=== PATIENT | female | born 2000 | race African-American/Black ===

== ENCOUNTER 2020-06-26 06:13 | Emergency (ER) | payer SELFPAY | END 2020-06-26 09:55 | disposition home or self-care (01) | LOC: CSHERS 06:13 | DX: T19.2XXA Foreign body in vulva and vagina, initial encounter (principal) ==

== ENCOUNTER 2024-12-24 07:48 | Outpatient (CLI) | payer OTHER | END 2024-12-24 07:49 | disposition home or self-care (01) | LOC: CSHMAMMO 07:48 | PROVIDERS: ATTEND Family Medicine | DX: N64.52 Nipple discharge (principal) | CPT/HCPCS: 76642 ==